=== PATIENT | female | born 1970 | race Two or more races ===

== ENCOUNTER 2021-09-07 02:47 | Emergency (ER) | payer BC ==
[~2021-09-07] VITALS: Ht 157.5 cm; Wt 72.6 kg
[2021-09-07] MEDS ORDERED: MORPHINE SULFATE INJ 2 MG/ML DISP.SYRIN ONE (03:09)
[2021-09-07] MEDS ORDERED: ONDANSETRON HCL/PF 4 MG/2 ML VIAL ONE (03:09)
--- NOTE | 2021-09-07 03:26 | NUR ---
BIB SELF C/O ONGOING VAGINAL BLEEDING X3-4 MONTHS THAT SHE IS CURRENTLY BEING TREATED FOR. STATES FOR THE PAST WEEK BLEEDING HAS RETURNED AND SHE HAS GENERALIZED ABD PAIN WELL PASSING LARGE BLOOD CLOTS. PLACED ON MONITOR VITAL SIGNS ARE STABLE WAS AT BEDSIDE FOR EVAL.
[2021-09-07] MEDS: IV NS 0.9% 500 ML BAG IV ONE (03:27)
[2021-09-07] MEDS: ONDANSETRON HCL/PF 4 MG/2 ML VIAL IVP ONE (03:27)
[2021-09-07] MEDS: MORPHINE SULFATE INJ 2 MG/ML DISP.SYRIN IV ONE (03:27)
[2021-09-07 03:32] LABS: BASOPHILS # (AUTO) 0.1 K/uL (0.0-0.2); BASOPHILS % (AUTO) 0.3 % (0.0-2.0); EOSINOPHILS % (AUTO) 0.8 % (0.0-6.0); HEMATOCRIT 37 % (33-45); HEMOGLOBIN 11.8 g/dL (11.5-14.8); LYMPHOCYTES # (AUTO) 3.6 K/uL (0.8-4.8); LYMPHOCYTES % (AUTO) 19.7 % (20.0-44.0); MEAN CORPUSCULAR HGB CONC 32 g/dl (31.0-36.0); MEAN CORPUSCULAR VOLUME 86 fL (82-100); MONOCYTES # (AUTO) 0.9 K/uL (0.1-1.30); MONOCYTES % (AUTO) 5.1 % (2.0-12.0); NEUTROPHILS # (AUTO) 13.6 K/uL (1.8-8.9); NEUTROPHILS % (AUTO) 74.1 % (43.0-81.0); PLATELET COUNT (AUTO) 272 K/uL (150-450); RED BLOOD CELL COUNT(AUTO) 4.27 MIL/uL (4.0-5.2); WHITE BLOOD COUNT (AUTO) 18.3 K/uL (4.3-11.0)
[2021-09-07 03:44] LABS: BILIRUBIN,URINE SMALL (NEGATIVE); COLOR,URINE RED (YELLOW); LEUKOCYTE ESTERASE ,URINE SMALL (NEGATIVE); NITRITE, URINE POSITIVE (NEGATIVE); PH,URINE 5.5 (5.0-8.0); PROTEIN,URINE >=300 mg/dl (NEGATIVE); UGLUCOSE NEGATIVE (NEGATIVE)
[2021-09-07 03:45] LABS: RBC,URINE TOO NUMEROUS TO COUN /HPF (0-2)
[2021-09-07 03:46] LABS: BACTERIA,URINE Few /HPF (None Seen); SQUAMOUS EPITHELIAL CELL,UR Rare /HPF (None Seen)
--- NOTE | 2021-09-07 03:58 | NUR ---
US TECK AT BED SIDE
[2021-09-07 04:14] LABS: ALBUMIN 3.8 g/dL (3.4-5.0); BILIRUBIN,DIRECT 0.1 mg/dL (0.0-0.2); BILIRUBIN,TOTAL 0.2 mg/dL (0.2-1.0); POTASSIUM 3.9 mmol/L (3.5-5.1); TOTAL PROTEIN, SERUM 7.9 g/dL (6.4-8.2)
[2021-09-07] MEDS ORDERED: NITR100C6 PO (04:40)
--- NOTE | 2021-09-07 05:17 | NUR ---
Patient discharged to home in stable condition. Written and verbal after care instructions given. Patient verbalizes understanding of instruction.
[2021-09-07 05:31] VITALS: BP 110/62
== END 2021-09-07 05:17 | disposition home or self-care (01) ==
LOC: ER 02:52
DX: N39.0 Urinary tract infection, site not specified (principal); N93.8 Other specified abnormal uterine and vaginal bleeding; D25.9 Leiomyoma of uterus, unspecified; Z79.899 Other long term (current) drug therapy
CPT/HCPCS: 36415; 76856; 80048; 80076; 81001; 84702; 85025; 85730; 86850; 87086; 96361; 96374; 96375; 99284; J2270; J2405; J7040